=== PATIENT | male | born 1955 | race Two or more races ===

== ENCOUNTER 2021-07-25 07:35 | Emergency (ER) | payer OTHER ==
[~2021-07-25] VITALS: Ht 172.7 cm; Wt 78.0 kg
[2021-07-25] MEDS ORDERED: PRILOSEC OTC20 MG (07:43)
[2021-07-25] MEDS ORDERED: LEVOTHYROXINE25 MCG (07:43)
[2021-07-25] MEDS ORDERED: ALDACTONE100 MG (07:44)
[2021-07-25] MEDS ORDERED: URSO250 MG (07:44)
[2021-07-25] MEDS ORDERED: CARAFATE1 GM (07:45)
[2021-07-25] MEDS ORDERED: PEPCID AC20 MG (07:45)
== END 2021-07-25 14:58 | disposition home or self-care (01) ==
LOC: ER 07:35
DX: K29.60 Other gastritis without bleeding (principal); Z03.818 Encounter for observation for suspected exposure to other biological agents ruled out

== ENCOUNTER 2021-08-20 22:41 | Emergency (ER) | payer OTHER ==
[~2021-08-20] VITALS: Ht 170.2 cm; Wt 82.6 kg
[~2021-08-20 22:41] MED LIST: ALDACTONE100 MG; CARAFATE1 GM; LEVOTHYROXINE25 MCG; PEPCID AC20 MG; PRILOSEC OTC20 MG; URSO250 MG
[2021-08-21] MEDS ORDERED: LACTULOSE10 GM/15 M PO (05:57)
== END 2021-08-21 06:15 | disposition home or self-care (01) ==
LOC: ER 22:41
DX: R11.2 Nausea with vomiting, unspecified (principal); E72.4 Disorders of ornithine metabolism; Z20.822 Contact with and (suspected) exposure to COVID-19